=== PATIENT | female | born 1955 | race African-American/Black ===

== ENCOUNTER 2018-12-12 09:00 | Emergency (ER) | payer MEDICARE ==
[~2018-12-12] VITALS: Ht 167.6 cm; Wt 72.1 kg
[2018-12-12] MEDS ORDERED: PREDNISOLO15 MG/5 M1 ORAL (09:15)
[2018-12-12] MEDS ORDERED: ADVAIR 100-501 EACH INH (09:15)
[2018-12-12] MEDS ORDERED: SINGULAIR4 M3 ORAL (09:15)
[2018-12-12] MEDS ORDERED: SYNTHROID25 MCG ORAL (09:15)
--- NOTE | 2018-12-12 09:19 | NUR ---
ED Nurse Note: Pt came in due to SOB and migraine that started last night. Denies CP but has hx of COPD. Pt is AAO x4, ambulatory, follows commands, Lungs are clear when auscultated. Noted SOB at rest. 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 Dr Lopez is at the bed side.
[2018-12-12 09:20] VITALS: BP 130/77
--- NOTE | 2018-12-12 09:28 | Emergency Room Report ---
History of Present Illness General Chief Complaint: Dyspnea/Respdistress Source: Patient Present Illness HPI Patient is a 63-year-old female presented after increased headache and respiratory difficulty. Patient a prior history of COPD. She reportedly had been not taking her Synthroid for several days. Patient is a former smoker. She reports having some increased nonproductive cough associated with increased headache. Patient previously been taking Fioricet. She had also been off of Synthroid which was 0.125mg patient had recently relocated from [place]. She reports having increased stress at home.She reports taking Singulair previously Allergies: Coded Allergies: No Known Allergies (Unverified , 12/12/18) Patient History Now: No Reviewed Nursing Documentation: PMH: Agreed; PSxH: Agreed Nursing Documentation-PMH Hx COPD: Yes Review of Systems All Other Systems: negative except mentioned in HPI Physical Exam Vital Signs Date Time Temp Pulse Resp B/P (MAP) Pulse Ox O2 Delivery O2 Flow Rate FiO2 12/12/18 09:09 97.5 67 21 130/77 85 Room Air General Appearance: well appearing, no apparent distress, alert, GCS 15 Head: normocephalic, atraumatic ENT: hearing grossly normal, normal voice Neck: full range of motion, supple Respiratory: no respiratory distress, speaking full sentences Cardiovascular #1: normal inspection, regular rate, rhythm, no edema, no gallop Gastrointestinal: normal inspection Musculoskeletal: no calf tenderness Neurologic: normal inspection, alert, oriented x3, responsive, housecleaner floor III-XII nml as tested, motor strength/tone normal, normal gait Psychiatric: mood/affect normal Skin: no rash Medical Decision Making ER Course Patient presented for increased cough and difficulty breathing. Differential diagnosis include was not limited to bronchitis, pneumonia, COPD exacerbation, chronic bronchitis among others. Patient has a benign exam and does not appear to require any further imaging or laboratory testing at this time. Patient appears to have a chronic lung condition. Patient symptoms appear to be related to lack of her usual medications.Patient be given some refills of medications. She was given Fioricet for symptomatic treatment. Last Vital Signs Date Time Temp Pulse Resp B/P (MAP) Pulse Ox O2 Delivery O2 Flow Rate FiO2 12/12/18 09:20 97.5 85 18 130/77 95 Room Air Gennaro Lopez MD Dec 12, 2018 09:28
--- NOTE | 2018-12-12 09:29 | NUR ---
ED Nurse Note: Called pharmacy for fioricet medication.
[2018-12-12] MEDS ORDERED: Albuterol/Ipratropium 3ml neb HHN ONE (09:30)
--- NOTE | 2018-12-12 09:37 | NUR ---
ED Nurse Note: Called RT for breathing treatment.
--- NOTE | 2018-12-12 09:47 | NUR ---
HAND-OFF: Report given to Adan Murray RN.
[2018-12-12] MEDS ORDERED: LEVOTHYROXINE125 MCG ORAL (10:28)
[2018-12-12] MEDS ORDERED: ADVAIR 100/501 PUFF1 INH (10:28)
[2018-12-12] MEDS ORDERED: ALBUTEROL SULF8.5 GM INH (10:28)
[2018-12-12] MEDS ORDERED: SINGULAIR4 M2 ORAL (10:28)
[2018-12-12] MEDS ORDERED: FIORICET1 EA ORAL (10:30)
[2018-12-12 10:39] VITALS: BP 138/49
--- NOTE | 2018-12-12 10:41 | NUR ---
ER DISCHARGE NOTE: Patient is cleared to be discharged per ERMD, pt is aox4, on room air, with stable vital signs. pt was given dc and prescription instructions, pt was able to verbalize understanding, pt id band was removed. pt is able to ambulate with steady gait. pt took all belongings.
== END 2018-12-12 10:42 | disposition home or self-care (01) ==
LOC: EMR 09:50
DX: R06.00 Dyspnea, unspecified (principal); R05 Cough; J44.9 Chronic obstructive pulmonary disease, unspecified; R51 Headache; Z87.891 Personal history of nicotine dependence
CPT/HCPCS: 94640; 99284; J7620

== ENCOUNTER 2019-03-30 09:31 | Emergency (ER) | payer MEDICARE, MEDICAID ==
[~2019-03-30] VITALS: Ht 167.6 cm; Wt 68.0 kg
[~2019-03-30 09:31] MED LIST: ADVAIR 100-501 EACH INH; ADVAIR 100/501 PUFF1 INH; ALBUTEROL SULF8.5 GM INH; FIORICET1 EA ORAL; LEVOTHYROXINE125 MCG ORAL; PREDNISOLO15 MG/5 M1 ORAL; SINGULAIR4 M2 ORAL; SINGULAIR4 M3 ORAL; SYNTHROID25 MCG ORAL
--- NOTE | 2019-03-30 09:44 | NUR ---
ED Nurse Note: PT WALKED IN TO ER TODAY FROM HOME. AOX4. PT C/O MIGRAINE, PAIN 04/28, X 2 DAYS AGO AFTER RUNNING OUT OF HER MEDICATION, BUTALBITAL. PT ALSO C/O FEELING SOB X YESTERDAY. NO SIGNS OF RESPIRATORY DISTRESS, RETRACTIONS, OR ACCESSORY MUSCLE USE NOTED. PT ABLE TO SPEAK IN FULL SENTENCES WITHOUT DIFFICULTY. RR18, O2 SAT 98% ON RA.
[2019-03-30 09:49] VITALS: BP 138/82
[2019-03-30] MEDS ORDERED: FIORICET1 EA ORAL (09:49)
--- NOTE | 2019-03-30 09:57 | NUR ---
ED Nurse Note: FIORCET NOT LOADED IN [facility]. PHARMACY CALLED. PER PHARMACIST, MED WILL BE AVAILABLE IN 10 MINUTES.
--- NOTE | 2019-03-30 10:01 | NUR ---
ED Nurse Note: PT LAYING PEACEFULLY IN BED IN NAD. AOX4. PRESCRIPTION AND DISCHARGE PAPERWORK EXPLAINED TO PT. PT VERBALIZES UNDERSTANDING AND ALL QUESTIONS ANSWERED. PRESCRIPTION AND DISCHARGE PAPERWORK GIVEN TO PT AND ID WRISTBAND REMOVED. PT WALKED OUT OF ER WITH STEADY GAIT AND ALL BELONGINGS.
--- NOTE | 2019-03-30 11:49 | Emergency Room Report ---
History of Present Illness General Chief Complaint: Headache Source: Patient Present Illness HPI 63-year-old female presents ED for evaluation. Complaining of headache for the last 2 days. History of migraines. States headache is pulsating, frontal, 7 out of 10, nonradiating. Denies photophobia or blurry vision. Denies nausea or vomiting. denies neck stiffness. This is typical of her migraine but states that she ran out of her Fioricet. Is visiting from [place]. no other aggravating relieving factors. Denies any other associated symptoms Allergies: Coded Allergies: No Known Allergies (Unverified , 12/12/18) Patient History Past Medical History: COPD, migraines Past Surgical History: none Pertinent Family History: none Social History: Denies: smoking, alcohol use, drug use Now: No Immunizations: UTD Reviewed Nursing Documentation: PMH: Agreed; PSxH: Agreed Nursing Documentation-PMH Past Medical History: No History, Except For Hx COPD: Yes Review of Systems All Other Systems: negative except mentioned in HPI Physical Exam Vital Signs Date Time Temp Pulse Resp B/P (MAP) Pulse Ox O2 Delivery O2 Flow Rate FiO2 03/30/19 09:38 98.2 61 20 146/86 (106) 96 Room Air Sp02 EP Interpretation: reviewed, normal General Appearance: no apparent distress, alert, GCS 15, non-toxic Head: normocephalic, atraumatic Eyes: bilateral eye normal inspection, bilateral eye PERRL, bilateral eye EOMI ENT: hearing grossly normal, normal pharynx, no angioedema, normal voice Neck: full range of motion, supple, no meningismus, supple/symm/no masses Respiratory: chest non-tender, lungs clear, normal breath sounds, speaking full sentences Cardiovascular #1: regular rate, rhythm, no edema Cardiovascular #2: 2+ carotid (R), 2+ carotid (L), 2+ radial (R), 2+ radial (L) , 2+ dorsalis pedis (R), 2+ dorsalis pedis (L) Gastrointestinal: normal bowel sounds, non tender, soft, non-distended, no guarding, no rebound Rectal: deferred Genitourinary: normal inspection, no CVA tenderness Musculoskeletal: back normal, gait/station normal, normal range of motion, non- tender Neurologic: alert, oriented x3, responsive, motor strength/tone normal, sensory intact, speech normal Psychiatric: judgement/insight normal, memory normal, mood/affect normal, no suicidal/homicidal ideation Reflexes: 3+ bicep (R), 3+ bicep (L), 3+ tricep (R), 3+ tricep (L), 3+ knee (R) , 3+ knee (L) Skin: normal color, no rash, warm/dry, well hydrated Lymphatic: no adenopathy Medical Decision Making Diagnostic Impression: Primary Impression: Headache Qualified Codes: R51 - Headache ER Course Hospital Course 63-year-old female presents to ED complaining of headaches x 2 days. h/o migraines Differential diagnoses include: tension headache, migraine, dehydration, intracranial bleed Clinical course Patient placed on stretcher. After initial history reveals elderly female in no acute distress. No focal neurological deficits. Visual acuity unchanged. No nuchal rigidity. Remainder physical exam unremarkable She given Fioricet here. Will discharge with Fioricet. States she is already feeling better. Safe for discharge for close outpatient follow-up. States she has a PMD i. I feel this is a highly complex case requiring extensive working including EKG/Rhythm strip, Xray/CT/US, Blood/urine lab work, repeat exams while in ED, and administration of strong opiates/narcotics for pain control, admission to hospital or close patient follow up. Diagnosis - headache stable and discharged to home with Fioricet. f/up with PMD. return to ED if symptoms recur/worsen. Last Vital Signs Date Time Temp Pulse Resp B/P (MAP) Pulse Ox O2 Delivery O2 Flow Rate FiO2 03/30/19 10:02 98.3 68 17 132/76 99 Room Air Status: improved Disposition: HOME, SELF-CARE Condition: Stable Scripts Acetamin/Butalbital/Caffeine* (FIORICET*) 1 Ea Tab 1 TAB ORAL Q6H, #15 TAB 0 Refills Prov: Irving Pham MD 03/30/19 Referrals: NOT CHOSEN IPA/,REFERRING (PCP) Allison Banks [facility] Patient Instructions: Migraine Headache Irving Pham MD Mar 30, 2019 11:49
== END 2019-03-30 10:00 | disposition home or self-care (01) ==
LOC: EMR 09:55
DX: R51 Headache (principal); J44.9 Chronic obstructive pulmonary disease, unspecified
CPT/HCPCS: 99282